=== PATIENT | female | born 1970 | race Native Hawaiian/Other Pacific Islander ===

== ENCOUNTER 2016-09-01 11:29 | Outpatient (CLI) | payer BC, OTHER ==
[~2016-09-01 11:29] MED LIST: ACID REDUCER150 MG PO; ALBU90AE13 INH; AMOX875T8 PO; BENZ100C8; BENZ100C8 PO; BENZONATATE200 MG PO; BUDE1AER5 INH; BUPROPN HCL300 MG PO; CHERATUSSIN OR; CLOBETASOL0.051; COUMADIN3 MG; DICL1GEL2 TOP; DICY20TA34 PO; DIPH2.5T76 PO; FLUT0.05; FLUTMIS14 INH; FLUTMIS6; FORTAMET500 MG PO; FURO20TA67 PO; FURO40TA93; FURO40TA93 PO; FURO80TA4 PO; FUROSEMIDE40 MG PO; GABA300C2 PO; GLIP5TAB65 PO; GRALISE600 MG PO; IMITREX100 MG PO; KEPPRA XR500 MG PO; KEPPRA750 MG PO; LEVAQUIN500 MG OR; LEVE500T5 PO; LEVO0.0529 PO; LISI10TA11; LISI10TA11 PO; MACROBID100 MG PO; METF500T; METOCLOPRAM10 MG PO; METRONIDAZOL500 MG OR; MICRO-K10 MEQ PO; NEUPRO1 MG/24 HR; NEUPRO1 MG/24 HR TD; NEUPRO3 MG/24 HR TOP; NEURONTIN800 MG PO; OMEPRAZOLE20 M1 PO; OMEPRAZOLE20 M2 PO; ONDA4TAB3 PO; POT CHLORIDE10 MEQ PO; POTASSI PO; PROTOPIC0.1 %; RANI150T78 PO; RANO500T PO; SALINE NASAL S0.651; SINGULAIR10 MG PO; SULFAZINE500 MG PO; THEOPHYLLINE S300 MG PO; TIZA4TAB5; TIZA4TAB5 PO; TRAZ100T; TUDORZA PR400 MG/ACT IN; UREA 40%; VIIBRYD40 MG PO; WARF5TAB6 PO; WARFARIN3 MG PO; WARFARIN6 MG PO; WELCHOL625 MG PO; ZOLP10TA2 PO
[2016-09-01 11:55] LABS: POTASSIUM 2.9 mmol/L (3.6-5.2); SODIUM 135 mmol/L (136-145)
== END 2016-09-01 19:23 | disposition home or self-care (01) ==
LOC: LABW 11:29
PROVIDERS: Physician Assistant
DX: D68.9 Coagulation defect, unspecified (principal); E87.6 Hypokalemia
CPT/HCPCS: 36415; 80048; 85610

== ENCOUNTER 2016-09-04 11:34 | Outpatient (CLI) | payer BC, OTHER ==
[~2016-09-04] VITALS: Ht 167.6 cm; Wt 127.9 kg
[2016-09-04 11:53] LABS: POTASSIUM 2.7 mmol/L (3.6-5.2); SODIUM 131 mmol/L (136-145)
== END 2016-09-04 21:28 | disposition home or self-care (01) ==
LOC: LABW 11:34 → INF 11:34 → LAB 11:34 → INF 21:28
PROVIDERS: Physician Assistant
DX: E87.6 Hypokalemia (principal); G25.81 Restless legs syndrome
CPT/HCPCS: 36416; 80048; 96365; 96366; J3480

== ENCOUNTER 2016-09-08 09:36 | Outpatient (CLI) | payer BC, OTHER ==
[2016-09-08 10:27] LABS: POTASSIUM 3.4 mmol/L (3.6-5.2); SODIUM 139 mmol/L (136-145)
== END 2016-09-08 22:08 | disposition home or self-care (01) ==
LOC: LABW 09:36
PROVIDERS: Physician Assistant
DX: E87.6 Hypokalemia (principal); D68.9 Coagulation defect, unspecified
CPT/HCPCS: 36415; 80048; 85610

== ENCOUNTER 2016-09-12 13:47 | Outpatient (CLI) | payer BC, OTHER ==
[2016-09-12 14:51] LABS: POTASSIUM 3.3 mmol/L (3.6-5.2); SODIUM 134 mmol/L (136-145)
[2016-09-12 15:03] LABS: PLATELET COUNT 323 K/uL (152-353)
[2016-09-12 15:08] LABS: PARTIAL THROMBOPLASTIN TIME 41.5 SECONDS (24.5-33.6)
== END 2016-09-12 20:51 | disposition home or self-care (01) ==
LOC: LABW 13:47
PROVIDERS: Physician Assistant
DX: D68.59 Other primary thrombophilia (principal); E87.6 Hypokalemia; R53.1 Weakness; Z51.81 Encounter for therapeutic drug level monitoring
CPT/HCPCS: 36415; 80053; 82607; 83735; 84439; 84443; 85027; 85610; 85730

== ENCOUNTER 2016-10-02 12:30 | Outpatient (CLI) | payer BC, OTHER ==
[2016-10-02 13:18] LABS: POTASSIUM 3.5 mmol/L (3.6-5.2); SODIUM 136 mmol/L (136-145)
== END 2016-10-02 19:09 | disposition home or self-care (01) ==
LOC: LABW 12:30
PROVIDERS: Physician Assistant
DX: E87.6 Hypokalemia (principal); D68.8 Other specified coagulation defects
CPT/HCPCS: 36415; 80048; 85610

== ENCOUNTER 2016-10-08 11:36 | Outpatient (CLI) | payer BC, OTHER | END 2016-10-08 12:36 | disposition home or self-care (01) | LOC: RAD 11:36 | DX: M54.40 Lumbago with sciatica, unspecified side (principal) ==

== ENCOUNTER 2016-10-29 11:00 | Outpatient (CLI) | payer BC, OTHER ==
[2016-10-29 12:18] LABS: POTASSIUM 3.3 mmol/L (3.6-5.2); SODIUM 136 mmol/L (136-145)
== END 2016-10-29 19:17 | disposition home or self-care (01) ==
LOC: LABW 11:00
PROVIDERS: Physician Assistant
DX: D68.9 Coagulation defect, unspecified (principal); E87.6 Hypokalemia
CPT/HCPCS: 36415; 80048; 85610

== ENCOUNTER 2016-11-19 10:19 | Outpatient (CLI) | payer BC, OTHER ==
[2016-11-19 12:21] LABS: POTASSIUM 3.5 mmol/L (3.6-5.2); SODIUM 137 mmol/L (136-145)
== END 2016-11-19 19:13 | disposition home or self-care (01) ==
LOC: LABW 10:19
PROVIDERS: Physician Assistant
DX: D68.8 Other specified coagulation defects (principal); E87.6 Hypokalemia
CPT/HCPCS: 36415; 80048; 85610

== ENCOUNTER 2016-12-04 12:40 | Outpatient (CLI) | payer BC, OTHER ==
[2016-12-04 13:45] LABS: POTASSIUM 3.4 mmol/L (3.6-5.2); SODIUM 137 mmol/L (136-145)
== END 2016-12-04 20:19 | disposition home or self-care (01) ==
LOC: LABW 12:40
PROVIDERS: Physician Assistant
DX: E87.6 Hypokalemia (principal); D68.8 Other specified coagulation defects
CPT/HCPCS: 36415; 80048; 85610

== ENCOUNTER 2017-01-12 12:27 | Observation (INO) | payer BC, OTHER ==
[~2017-01-12] VITALS: Ht 170.2 cm; Wt 127.1 kg
--- NOTE | 2017-01-12 13:29 | NUR ---
Pt. ADMITTED TO ROOM [address] PHAM. C/O LAST THURSDAY STARTED COUGHING, FEVER, ACHING ALLOVER AND WHEEZING. COUGHING A PRODUCTIVE COUGH OF WHITISH COLOR SPUTUM.
[2017-01-12 16:31] LABS: PLATELET COUNT 318 K/uL (152-353)
[2017-01-12 16:54] LABS: POTASSIUM 3.4 mmol/L (3.6-5.2); SODIUM 136 mmol/L (136-145)
--- NOTE | 2017-01-12 19:30 | NUR ---
Received pt resting in bed with family at bedside. No distress noted. Complains of headache and cough. Assessment completed. Bed in lowest position. Call light within reach. Will continue to monitor.
[2017-01-12 20:00] VITALS: BP 143/70; TEMP 97.8
[2017-01-12 20:07] VITALS: BP 132/87; TEMP 99.2; Ht 170.2 cm; Wt 127.1 kg
--- NOTE | 2017-01-12 23:49 | NUR ---
2320- Dr. Hoffmann notified of pt being anxious after breathing treatment. Order given at this time.
[2017-01-13] VITALS: BP 104/51; TEMP 98.8
[2017-01-13 04:00] VITALS: BP 106/61; TEMP 99
[2017-01-13 08:00] VITALS: BP 101/54; TEMP 98.6
[2017-01-13 09:17] LABS: PLATELET COUNT 283 K/uL (152-353)
[2017-01-13 09:41] LABS: SODIUM 139 mmol/L (136-145)
[2017-01-13 12:00] VITALS: BP 99/58; TEMP 97.6
--- NOTE | 2017-01-13 16:32 | NUR ---
IV D/C'd. NO REDNESS OR EDEMA OBSERVED. DISCHARGE INSTRUCTIONS SIGNED AND GIVEN. Pt. EXIT OUT OF FRONT ENTRANCE VIA W/C.
== END 2017-01-13 16:32 | disposition home or self-care (01) ==
LOC: MED/SURG 12:27
PROVIDERS: Internal Medicine; ADMIT Physician Assistant
DX: J44.1 Chronic obstructive pulmonary disease with (acute) exacerbation (principal); F17.210 Nicotine dependence, cigarettes, uncomplicated; R06.02 Shortness of breath
CPT/HCPCS: 36415; 80053; 82948; 83735; 84100; 85007; 85027; 85610; 87040; 87070; 87077; 87186; 87205; 93005; 94640; 94664; 94760; 99220; G0378; G0379; J3480

== ENCOUNTER 2017-02-06 11:21 | Outpatient (CLI) | payer BC, OTHER ==
[2017-02-06 12:30] LABS: SODIUM 137 mmol/L (136-145)
== END 2017-02-06 12:30 | disposition home or self-care (01) ==
LOC: LABW 11:21
PROVIDERS: Physician Assistant
DX: E87.6 Hypokalemia (principal); D68.8 Other specified coagulation defects
CPT/HCPCS: 36415; 80048; 85610

== ENCOUNTER 2017-02-26 13:59 | Outpatient (CLI) | payer BC, OTHER ==
[2017-02-26 14:59] LABS: SODIUM 138 mmol/L (136-145)
== END 2017-02-26 17:57 | disposition home or self-care (01) ==
LOC: LABW 13:59
PROVIDERS: Physician Assistant
DX: E87.6 Hypokalemia (principal); D68.8 Other specified coagulation defects
CPT/HCPCS: 36415; 80048; 85610

== ENCOUNTER 2017-04-16 16:32 | Outpatient (CLI) | payer BC, OTHER ==
[2017-04-16 17:28] LABS: POTASSIUM 3.4 mmol/L (3.6-5.2)
== END 2017-04-16 17:35 | disposition home or self-care (01) ==
LOC: LABW 16:32
DX: E87.6 Hypokalemia (principal); D68.8 Other specified coagulation defects
CPT/HCPCS: 36415; 80048; 85610

== ENCOUNTER 2017-04-25 10:37 | Outpatient (CLI) | payer BC, OTHER | END 2017-04-25 11:40 | disposition home or self-care (01) | LOC: LABW 10:37 | DX: Z86.010 Personal history of colon polyps (principal) | CPT/HCPCS: 82272 ==

== ENCOUNTER 2017-04-29 10:35 | Day surgery (SDC) | payer BC, OTHER ==
[2017-04-29 11:13] LABS: PLATELET COUNT 336 K/uL (152-353)
[2017-04-29 11:26] LABS: POTASSIUM 3.3 mmol/L (3.6-5.2); SODIUM 135 mmol/L (136-145)
[2017-04-29 11:41] LABS: PARTIAL THROMBOPLASTIN TIME 28.7 SECONDS (24.5-33.6)
== END 2017-04-29 16:05 | disposition home or self-care (01) ==
LOC: OR 10:35
PROVIDERS: Internal Medicine Gastroenterology
PROC: 0DB68ZZ Excision of Stomach, Via Natural or Artificial Opening Endoscopic (ICD-10-PCS; principal; 2017-04-29)
PROC: 0DB88ZZ Excision of Small Intestine, Via Natural or Artificial Opening Endoscopic (ICD-10-PCS; 2017-04-29)
PROC: 0D738ZZ Dilation of Lower Esophagus, Via Natural or Artificial Opening Endoscopic (ICD-10-PCS; 2017-04-29)
DX: K29.00 Acute gastritis without bleeding (principal); K31.7 Polyp of stomach and duodenum; K22.4 Dyskinesia of esophagus; K22.2 Esophageal obstruction; K21.0 Gastro-esophageal reflux disease with esophagitis; R13.19 Other dysphagia; R10.13 Epigastric pain; K25.9 Gastric ulcer, unspecified as acute or chronic, without hemorrhage or perforation
CPT/HCPCS: 36415; 80053; 85027; 85610; 85730; J2001; J2250; J2704; J3010; J3490

== ENCOUNTER 2017-05-08 17:32 | Outpatient (CLI) | payer BC, OTHER ==
[2017-05-08 19:11] LABS: POTASSIUM 3.7 mmol/L (3.6-5.2)
== END 2017-05-08 18:35 | disposition home or self-care (01) ==
LOC: LABW 17:32
PROVIDERS: Internal Medicine
DX: D68.8 Other specified coagulation defects (principal); E87.6 Hypokalemia
CPT/HCPCS: 36415; 80048; 85610

== ENCOUNTER 2017-05-27 10:19 | Outpatient (CLI) | payer BC, OTHER | END 2017-05-27 11:20 | disposition home or self-care (01) | LOC: MAMMO 10:19 | DX: Z12.31 Encounter for screening mammogram for malignant neoplasm of breast (principal) ==

== ENCOUNTER 2017-06-05 12:11 | Emergency (ER) | payer BC, OTHER ==
[~2017-06-05] VITALS: Ht 170.2 cm; Wt 122.9 kg
[2017-06-05 12:05] VITALS: TEMP 97.4
[2017-06-05 13:42] LABS: PLATELET COUNT 333 K/uL (152-353)
[2017-06-05 13:50] LABS: POTASSIUM 3.5 mmol/L (3.6-5.2); SODIUM 137 mmol/L (136-145)
[2017-06-05 14:02] LABS: PARTIAL THROMBOPLASTIN TIME 46.9 SECONDS (24.5-33.6)
[2017-06-05 17:00] VITALS: BP 105/55
== END 2017-06-05 17:05 | disposition home or self-care (01) ==
LOC: ED 12:11
PROVIDERS: Emergency Medicine
DX: J40 Bronchitis, not specified as acute or chronic (principal); J18.0 Bronchopneumonia, unspecified organism; M94.0 Chondrocostal junction syndrome [Tietze]
CPT/HCPCS: 80053; 82553; 84484; 85027; 85610; 85730; 93005; 96372; 99284; J1885; J2360

== ENCOUNTER 2017-07-03 12:17 | Outpatient (CLI) | payer BC, OTHER ==
[2017-07-03 12:39] LABS: POTASSIUM 3.5 mmol/L (3.6-5.2); SODIUM 138 mmol/L (136-145)
== END 2017-07-03 19:00 | disposition home or self-care (01) ==
LOC: LABW 12:17
PROVIDERS: Internal Medicine
DX: E87.6 Hypokalemia (principal); D68.8 Other specified coagulation defects
CPT/HCPCS: 36415; 80048; 85610

== ENCOUNTER 2017-07-20 14:55 | Outpatient (CLI) | payer BC, OTHER ==
[2017-07-20 15:23] LABS: POTASSIUM 3.5 mmol/L (3.6-5.2)
== END 2017-07-20 18:59 | disposition home or self-care (01) ==
LOC: LABW 14:55
PROVIDERS: Internal Medicine
DX: E87.6 Hypokalemia (principal); D68.8 Other specified coagulation defects
CPT/HCPCS: 36415; 80048; 85610

== ENCOUNTER 2017-09-03 07:43 | Outpatient (CLI) | payer BC, OTHER | END 2017-09-03 21:58 | disposition home or self-care (01) | LOC: NM 07:43 | DX: R07.89 Other chest pain (principal) | CPT/HCPCS: A9500; J2785 ==

== ENCOUNTER 2017-09-11 14:34 | Outpatient (CLI) | payer BC, OTHER ==
[2017-09-11 15:06] LABS: POTASSIUM 3.5 mmol/L (3.6-5.2)
== END 2017-09-11 19:34 | disposition home or self-care (01) ==
LOC: LABW 14:34
PROVIDERS: Internal Medicine
DX: E87.6 Hypokalemia (principal); D68.8 Other specified coagulation defects
CPT/HCPCS: 36415; 80048; 85610

== ENCOUNTER 2017-09-25 11:53 | Outpatient (CLI) | payer BC, OTHER ==
[2017-09-25 12:20] LABS: POTASSIUM 3.4 mmol/L (3.6-5.2)
== END 2017-09-25 19:24 | disposition home or self-care (01) ==
LOC: LABW 11:53
PROVIDERS: Physician Assistant
DX: R25.2 Cramp and spasm (principal); E87.6 Hypokalemia
CPT/HCPCS: 36415; 80048; 83735

== ENCOUNTER 2017-10-06 12:25 | Outpatient (CLI) | payer BC, OTHER ==
[2017-10-06 13:05] LABS: PLATELET COUNT 369 K/uL (152-353)
[2017-10-06 13:46] LABS: POTASSIUM 3.1 mmol/L (3.6-5.2)
== END 2017-10-06 19:08 | disposition home or self-care (01) ==
LOC: LABW 12:25
PROVIDERS: Internal Medicine
DX: E11.29 Type 2 diabetes mellitus with other diabetic kidney complication (principal)
CPT/HCPCS: 36415; 80053; 81000; 82043; 82306; 82570; 82728; 82746; 83540; 83550; 83735; 83970; 84100; 84155; 84439; 84443; 85027; 85651

== ENCOUNTER 2017-12-25 12:31 | Outpatient (CLI) | payer BC, OTHER ==
[2017-12-25 14:07] LABS: POTASSIUM 3.5 mmol/L (3.6-5.2)
== END 2017-12-25 22:15 | disposition home or self-care (01) ==
LOC: LABW 12:31
PROVIDERS: Internal Medicine
DX: E87.6 Hypokalemia (principal); D68.8 Other specified coagulation defects
CPT/HCPCS: 36415; 80048; 85610

== ENCOUNTER 2018-01-19 13:03 | Outpatient (CLI) | payer BC, OTHER ==
[2018-01-19 13:29] LABS: POTASSIUM 3.7 mmol/L (3.6-5.2)
== END 2018-01-19 19:50 | disposition home or self-care (01) ==
LOC: LABW 13:03
PROVIDERS: Physician Assistant
DX: E87.6 Hypokalemia (principal); D68.8 Other specified coagulation defects
CPT/HCPCS: 36415; 80048; 85610

== ENCOUNTER 2018-03-06 00:54 | Emergency (ER) | payer BC, OTHER ==
[~2018-03-06] VITALS: Ht 170.2 cm; Wt 125.2 kg
[2018-03-06 04:14] VITALS: BP 110/78; TEMP 98.6
== END 2018-03-06 04:17 | disposition home or self-care (01) ==
LOC: ED 00:54
DX: S93.691A Other sprain of right foot, initial encounter (principal); S93.491A Sprain of other ligament of right ankle, initial encounter; M79.671 Pain in right foot; M25.571 Pain in right ankle and joints of right foot; W01.0XXA Fall on same level from slipping, tripping and stumbling without subsequent striking against object, initial encounter; Y92.89 Other specified places as the place of occurrence of the external cause
CPT/HCPCS: 96372; 99283; J1885

== ENCOUNTER 2018-03-09 07:56 | Day surgery (SDC) | payer BC, OTHER ==
[2018-03-02 09:40] LABS: PLATELET COUNT 316 K/uL (152-353)
[2018-03-02 09:55] LABS: POTASSIUM 3.6 mmol/L (3.6-5.2)
[2018-03-09 08:48] LABS: PARTIAL THROMBOPLASTIN TIME 27.1 SECONDS (24.5-33.6)
== END 2018-03-09 12:00 | disposition home or self-care (01) ==
LOC: OR 07:56
PROVIDERS: Student in an Organized Health Care Education/Training Program
PROC: 0LB70ZZ Excision of Right Hand Tendon, Open Approach (ICD-10-PCS; principal; 2018-03-09)
DX: M67.441 Ganglion, right hand (principal)
CPT/HCPCS: 36415; 80053; 85027; 85610; 85730; J0132; J0690; J1100; J1170; J2001; J2250; J2405; J2704; J2765; J3010; J3490

== ENCOUNTER 2018-05-18 08:18 | Outpatient (CLI) | payer BC, OTHER | END 2018-05-18 23:22 | disposition home or self-care (01) | LOC: NM 08:18 | DX: S92.214D Nondisplaced fracture of cuboid bone of right foot, subsequent encounter for fracture with routine healing (principal); X58.XXXD Exposure to other specified factors, subsequent encounter | CPT/HCPCS: A9561 ==

== ENCOUNTER 2018-06-07 12:00 | Outpatient (CLI) | payer BC, OTHER | END 2018-06-07 19:22 | disposition home or self-care (01) | LOC: LABW 12:00 | DX: M79.632 Pain in left forearm (principal); D68.9 Coagulation defect, unspecified | CPT/HCPCS: 36415; 85610 ==

== ENCOUNTER 2018-06-28 13:13 | Outpatient (CLI) | payer BC, OTHER ==
[2018-06-28 14:06] LABS: POTASSIUM 3.6 mmol/L (3.6-5.2)
== END 2018-06-28 19:25 | disposition home or self-care (01) ==
LOC: LABW 13:13
PROVIDERS: Internal Medicine
DX: D68.9 Coagulation defect, unspecified (principal)
CPT/HCPCS: 36415; 80048; 85610

== ENCOUNTER 2018-08-04 11:03 | Day surgery (SDC) | payer BC, OTHER ==
[2018-08-04 12:31] LABS: PLATELET COUNT 350 K/uL (152-353)
[2018-08-04 13:04] LABS: PARTIAL THROMBOPLASTIN TIME 33.9 SECONDS (24.5-33.6)
== END 2018-08-04 14:45 | disposition home or self-care (01) ==
LOC: OR 11:03
PROVIDERS: Internal Medicine Gastroenterology
PROC: 0DBK8ZZ Excision of Ascending Colon, Via Natural or Artificial Opening Endoscopic (ICD-10-PCS; principal; 2018-08-04)
PROC: 0DBM8ZZ Excision of Descending Colon, Via Natural or Artificial Opening Endoscopic (ICD-10-PCS; 2018-08-04)
PROC: 0DBL8ZZ Excision of Transverse Colon, Via Natural or Artificial Opening Endoscopic (ICD-10-PCS; 2018-08-04)
DX: K63.5 Polyp of colon (principal); D12.4 Benign neoplasm of descending colon; D12.3 Benign neoplasm of transverse colon; K64.8 Other hemorrhoids; Z86.010 Personal history of colon polyps
CPT/HCPCS: 85027; 85610; 85730; J2001; J2250; J2704

== ENCOUNTER 2018-09-08 10:12 | Outpatient (CLI) | payer BC, OTHER ==
[2018-09-08 10:34] LABS: POTASSIUM 3.4 mmol/L (3.6-5.2)
== END 2018-09-08 19:27 | disposition home or self-care (01) ==
LOC: LABW 10:12
PROVIDERS: Internal Medicine
DX: D68.9 Coagulation defect, unspecified (principal); E87.6 Hypokalemia
CPT/HCPCS: 80048; 85610

== ENCOUNTER 2018-10-11 14:32 | Outpatient (CLI) | payer BC, OTHER | END 2018-10-11 20:04 | disposition home or self-care (01) | LOC: RAD 14:32 | DX: J40 Bronchitis, not specified as acute or chronic (principal) ==

== ENCOUNTER 2018-10-15 10:50 | Outpatient (CLI) | payer BC, OTHER ==
[2018-10-15 11:45] LABS: POTASSIUM 3.3 mmol/L (3.6-5.2)
== END 2018-10-15 19:42 | disposition home or self-care (01) ==
LOC: LABW 10:50
PROVIDERS: Internal Medicine
DX: D68.9 Coagulation defect, unspecified (principal); E87.6 Hypokalemia
CPT/HCPCS: 36415; 80048; 85610

== ENCOUNTER 2018-10-21 12:17 | Outpatient (CLI) | payer BC, OTHER ==
[2018-10-21 12:35] LABS: POTASSIUM 4.1 mmol/L (3.6-5.2)
== END 2018-10-21 21:52 | disposition home or self-care (01) ==
LOC: LABW 12:17
PROVIDERS: Internal Medicine
DX: D68.9 Coagulation defect, unspecified (principal)
CPT/HCPCS: 36415; 80048; 85610

== ENCOUNTER 2018-11-18 10:46 | Outpatient (CLI) | payer BC, OTHER ==
[2018-11-18 11:15] LABS: POTASSIUM 3.7 mmol/L (3.6-5.2)
== END 2018-11-18 20:41 | disposition home or self-care (01) ==
LOC: LABW 10:46
PROVIDERS: Internal Medicine
DX: D68.9 Coagulation defect, unspecified (principal); E87.6 Hypokalemia
CPT/HCPCS: 36415; 80048; 85610

== ENCOUNTER 2018-12-16 10:32 | Outpatient (CLI) | payer BC, OTHER | END 2018-12-16 21:02 | disposition home or self-care (01) | LOC: LABW 10:32 | DX: D68.9 Coagulation defect, unspecified (principal); E87.6 Hypokalemia | CPT/HCPCS: 36415; 85610 ==

== ENCOUNTER 2019-01-20 16:10 | Emergency (ER) | payer BC, OTHER ==
[~2019-01-20] VITALS: Ht 170.2 cm; Wt 104.3 kg
[2019-01-20] MEDS ORDERED: [UNRECOGNIZED DRUG - CODE] PO (16:45)
[2019-01-20 17:13] VITALS: BP 124/79; TEMP 97.5
== END 2019-01-20 17:15 | disposition home or self-care (01) ==
LOC: ED 16:10
DX: J03.90 Acute tonsillitis, unspecified (principal); F17.210 Nicotine dependence, cigarettes, uncomplicated
CPT/HCPCS: 96372; 99283; J1100

== ENCOUNTER 2019-01-24 10:19 | Outpatient (CLI) | payer BC, OTHER ==
[~2019-01-24 10:19] MED LIST changes: +[UNRECOGNIZED DRUG - CODE] PO
== END 2019-01-24 19:48 | disposition home or self-care (01) ==
LOC: LABW 10:19
DX: J02.8 Acute pharyngitis due to other specified organisms (principal)
CPT/HCPCS: 36415; 86648; 87077; 87081; 87185

== ENCOUNTER 2019-02-16 10:55 | Outpatient (CLI) | payer BC, OTHER ==
[2019-02-16 11:15] LABS: POTASSIUM 3.5 mmol/L (3.6-5.2)
== END 2019-02-16 23:28 | disposition home or self-care (01) ==
LOC: LABW 10:55
PROVIDERS: Internal Medicine
DX: D68.9 Coagulation defect, unspecified (principal); E87.6 Hypokalemia
CPT/HCPCS: 36415; 80048; 85610

== ENCOUNTER 2019-03-16 11:53 | Day surgery (SDC) | payer OTHER, BC ==
[2019-03-16 12:44] LABS: PLATELET COUNT 337 K/uL (152-353)
[2019-03-16 12:53] LABS: POTASSIUM 3.7 mmol/L (3.6-5.2)
[2019-03-16 13:05] LABS: PARTIAL THROMBOPLASTIN TIME 32.8 SECONDS (24.5-33.6)
== END 2019-03-16 14:45 | disposition home or self-care (01) ==
LOC: OR 11:53
PROVIDERS: Internal Medicine Gastroenterology
PROC: 0DBH8ZZ Excision of Cecum, Via Natural or Artificial Opening Endoscopic (ICD-10-PCS; principal; 2019-03-16)
PROC: 0DBK8ZZ Excision of Ascending Colon, Via Natural or Artificial Opening Endoscopic (ICD-10-PCS; 2019-03-16)
PROC: 0DBL8ZZ Excision of Transverse Colon, Via Natural or Artificial Opening Endoscopic (ICD-10-PCS; 2019-03-16)
DX: D12.2 Benign neoplasm of ascending colon (principal); D12.0 Benign neoplasm of cecum; D12.3 Benign neoplasm of transverse colon; K64.8 Other hemorrhoids; Z86.010 Personal history of colon polyps; Z79.01 Long term (current) use of anticoagulants
CPT/HCPCS: 80053; 85027; 85610; 85730; J2001; J2250; J2405; J2704

== ENCOUNTER 2019-04-07 10:58 | Outpatient (CLI) | payer OTHER, BC ==
[2019-04-07 11:13] LABS: PLATELET COUNT 339 K/uL (152-353)
[2019-04-07 11:32] LABS: POTASSIUM 3.3 mmol/L (3.6-5.2)
== END 2019-04-07 23:59 | disposition home or self-care (01) ==
LOC: LABW 10:58
PROVIDERS: Physician Assistant
DX: D68.8 Other specified coagulation defects (principal); E87.6 Hypokalemia; E03.8 Other specified hypothyroidism
CPT/HCPCS: 36415; 80048; 84439; 84443; 85027; 85610

== ENCOUNTER 2019-06-02 10:41 | Outpatient (CLI) | payer OTHER, BC ==
[2019-06-02 12:14] LABS: POTASSIUM 3.4 mmol/L (3.6-5.2)
[2019-06-02 12:22] LABS: PLATELET COUNT 344 K/uL (152-353)
== END 2019-06-02 20:25 | disposition home or self-care (01) ==
LOC: LABW 10:41
PROVIDERS: Physician Assistant
DX: R53.83 Other fatigue (principal); E83.42 Hypomagnesemia; E03.8 Other specified hypothyroidism; Z79.899 Other long term (current) drug therapy; Z79.01 Long term (current) use of anticoagulants
CPT/HCPCS: 36415; 80053; 80061; 83735; 84443; 85027; 85610

== ENCOUNTER 2019-08-04 11:51 | Outpatient (CLI) | payer OTHER, BC ==
[2019-08-04 12:42] LABS: POTASSIUM 3.7 mmol/L (3.6-5.2)
== END 2019-08-04 20:18 | disposition home or self-care (01) ==
LOC: LABW 11:51
PROVIDERS: Physician Assistant
DX: R05 Cough (principal); D68.8 Other specified coagulation defects; E87.6 Hypokalemia
CPT/HCPCS: 36415; 80048; 85610; 86615

== ENCOUNTER 2019-09-06 11:18 | Outpatient (CLI) | payer OTHER, BC | END 2019-09-06 19:43 | disposition home or self-care (01) | LOC: LABW 11:18 | DX: R19.7 Diarrhea, unspecified (principal) | CPT/HCPCS: 83630; 87015; 87045; 87328; 87329; 87899 ==

== ENCOUNTER 2019-09-26 21:23 | Emergency (ER) | payer OTHER, BC ==
[~2019-09-26] VITALS: Ht 170.2 cm; Wt 89.8 kg
[2019-09-26 22:22] VITALS: BP 128/83; TEMP 98.7
== END 2019-09-26 22:23 | disposition home or self-care (01) ==
LOC: ED 21:23
DX: K08.89 Other specified disorders of teeth and supporting structures (principal)
CPT/HCPCS: 99282

== ENCOUNTER 2019-11-03 15:10 | Outpatient (CLI) | payer OTHER, BC | END 2019-11-03 22:47 | disposition home or self-care (01) | LOC: LABW 15:10 | DX: E87.6 Hypokalemia (principal); D68.8 Other specified coagulation defects; E83.42 Hypomagnesemia | CPT/HCPCS: 36415; 84132; 85610 ==

== ENCOUNTER 2019-11-07 15:31 | Outpatient (CLI) | payer OTHER, BC | END 2019-11-07 23:10 | disposition home or self-care (01) | LOC: LAB 15:31 | DX: R19.7 Diarrhea, unspecified (principal) | CPT/HCPCS: 82272; 87015; 87045; 87077; 87185; 87186; 87324; 87328; 87329; 87449; 87507; 87899 ==

== ENCOUNTER 2020-02-02 10:45 | Outpatient (CLI) | payer OTHER, BC ==
[2020-02-02 11:14] LABS: PLATELET COUNT 299 K/uL (152-353)
[2020-02-02 11:33] LABS: POTASSIUM 3.7 mmol/L (3.6-5.2)
== END 2020-02-02 19:08 | disposition home or self-care (01) ==
LOC: LAB 10:45
PROVIDERS: Internal Medicine
DX: I10 Essential (primary) hypertension (principal); E03.8 Other specified hypothyroidism; D68.59 Other primary thrombophilia
CPT/HCPCS: 80053; 80061; 81000; 83735; 84439; 84443; 85027; 85610

== ENCOUNTER 2020-05-09 13:47 | Day surgery (SDC) | payer OTHER, BC ==
[2020-05-07 14:03] LABS: PLATELET COUNT 274 K/uL (152-353)
[2020-05-07 14:12] LABS: POTASSIUM 3.9 mmol/L (3.6-5.2)
[2020-05-07 14:17] LABS: PARTIAL THROMBOPLASTIN TIME 27.6 SECONDS (24.5-33.6)
[~2020-05-09] VITALS: Ht 165.1 cm; Wt 0.5 kg
== END 2020-05-09 16:15 | disposition home or self-care (01) ==
LOC: OR 13:47
PROVIDERS: Internal Medicine Gastroenterology
PROC: 0DBN8ZZ Excision of Sigmoid Colon, Via Natural or Artificial Opening Endoscopic (ICD-10-PCS; principal; 2020-05-09)
DX: K63.5 Polyp of colon (principal); D12.5 Benign neoplasm of sigmoid colon; K64.8 Other hemorrhoids; Z86.010 Personal history of colon polyps; Z12.11 Encounter for screening for malignant neoplasm of colon; Z79.01 Long term (current) use of anticoagulants
CPT/HCPCS: 80053; 85027; 85610; 85730; J2704

== ENCOUNTER 2020-05-14 11:41 | Outpatient (CLI) | payer OTHER, BC ==
[2020-05-14 12:26] LABS: POTASSIUM 3.7 mmol/L (3.6-5.2)
== END 2020-05-14 19:11 | disposition home or self-care (01) ==
LOC: LABW 11:41
PROVIDERS: Physician Assistant
DX: D68.8 Other specified coagulation defects (principal); E87.6 Hypokalemia; E83.42 Hypomagnesemia
CPT/HCPCS: 36415; 83735; 84132; 85610

== ENCOUNTER 2020-07-26 09:57 | Outpatient (CLI) | payer OTHER, BC | END 2020-07-26 19:00 | disposition home or self-care (01) | LOC: MAMMO 09:57 | PROVIDERS: ATTEND Internal Medicine | DX: Z12.31 Encounter for screening mammogram for malignant neoplasm of breast (principal); Z13.820 Encounter for screening for osteoporosis; N95.8 Other specified menopausal and perimenopausal disorders ==

== ENCOUNTER 2020-09-06 15:33 | Outpatient (CLI) | payer OTHER, BC | END 2020-09-06 21:43 | disposition home or self-care (01) | LOC: RAD 15:33 | PROVIDERS: ATTEND Internal Medicine | DX: M25.511 Pain in right shoulder (principal) ==

== ENCOUNTER 2020-10-03 10:37 | Day surgery (SDC) | payer OTHER, BC ==
[2020-09-27 08:44] LABS: PLATELET COUNT 278 K/uL (152-353)
[2020-09-27 09:07] LABS: POTASSIUM 3.3 mmol/L (3.6-5.2)
[~2020-10-03] VITALS: Ht 30.5 cm; Wt 0.5 kg
== END 2020-10-03 13:15 | disposition home or self-care (01) ==
LOC: OR 10:37
PROVIDERS: ATTEND Internal Medicine Gastroenterology
PROC: 0DB68ZZ Excision of Stomach, Via Natural or Artificial Opening Endoscopic (ICD-10-PCS; principal; 2020-10-03)
PROC: 0D738ZZ Dilation of Lower Esophagus, Via Natural or Artificial Opening Endoscopic (ICD-10-PCS; 2020-10-03)
DX: K29.50 Unspecified chronic gastritis without bleeding (principal); K21.00 Gastro-esophageal reflux disease with esophagitis, without bleeding; K22.4 Dyskinesia of esophagus; K22.2 Esophageal obstruction; R13.19 Other dysphagia; Z20.828 Contact with and (suspected) exposure to other viral communicable diseases
CPT/HCPCS: 80053; 85027; 87635; J2704; U0003

== ENCOUNTER 2021-01-21 18:29 | Outpatient (CLI) | payer OTHER, BC ==
[2021-01-21 18:49] LABS: PLATELET COUNT 272 K/uL (152-353)
[2021-01-21 19:27] LABS: POTASSIUM 3.8 mmol/L (3.6-5.2)
== END 2021-01-21 19:08 | disposition home or self-care (01) ==
LOC: LABW 18:29
PROVIDERS: ATTEND Physician Assistant
DX: D68.8 Other specified coagulation defects (principal); I10 Essential (primary) hypertension; E87.6 Hypokalemia; E03.8 Other specified hypothyroidism; E83.42 Hypomagnesemia; E11.9 Type 2 diabetes mellitus without complications
CPT/HCPCS: 36415; 80053; 80061; 82652; 83036; 83735; 84439; 84443; 85027

== ENCOUNTER 2021-03-21 15:00 | Outpatient (CLI) | payer OTHER, BC | END 2021-03-21 22:09 | disposition home or self-care (01) | LOC: MRI 15:00 | PROVIDERS: ATTEND Internal Medicine | DX: M47.816 Spondylosis without myelopathy or radiculopathy, lumbar region (principal) ==

== ENCOUNTER 2021-08-04 14:07 | Outpatient (CLI) | payer OTHER, BC | END 2021-08-04 18:51 | disposition home or self-care (01) | LOC: LABW 14:07 | PROVIDERS: ATTEND Internal Medicine | DX: D68.8 Other specified coagulation defects (principal) | CPT/HCPCS: 36415; 85610 ==

== ENCOUNTER 2022-04-07 10:25 | Outpatient (CLI) | payer OTHER, BC ==
[2022-04-07 11:23] LABS: PLATELET COUNT 275 K/uL (152-353)
[2022-04-07 11:44] LABS: POTASSIUM 3.3 mmol/L (3.6-5.2)
== END 2022-04-07 19:32 | disposition home or self-care (01) ==
LOC: LABW 10:25
PROVIDERS: ATTEND Internal Medicine
DX: E03.8 Other specified hypothyroidism (principal); Z51.81 Encounter for therapeutic drug level monitoring; Z79.899 Other long term (current) drug therapy
CPT/HCPCS: 36415; 80053; 80061; 80307; 81002; 84439; 84443; 85027

== ENCOUNTER 2022-08-31 10:16 | Emergency (ER) | payer OTHER, BC ==
[~2022-08-31] VITALS: Ht 170.2 cm; Wt 82.6 kg
[2022-08-31 10:25] VITALS: TEMP 98.4
[2022-08-31 12:21] VITALS: BP 127/71
== END 2022-08-31 12:21 | disposition home or self-care (01) ==
LOC: ED 10:16
DX: S90.31XA Contusion of right foot, initial encounter (principal); S90.221A Contusion of right lesser toe(s) with damage to nail, initial encounter; S92.514A Nondisplaced fracture of proximal phalanx of right lesser toe(s), initial encounter for closed fracture; W22.03XA Walked into furniture, initial encounter; Y92.89 Other specified places as the place of occurrence of the external cause
CPT/HCPCS: 99283

== ENCOUNTER 2023-02-06 09:00 | Outpatient (CLI) | payer BC, OTHER | END 2023-02-06 18:53 | disposition home or self-care (01) | LOC: RAD 09:00 | PROVIDERS: ATTEND Internal Medicine | DX: J42 Unspecified chronic bronchitis (principal) ==

== ENCOUNTER 2023-04-29 16:45 | Outpatient (CLI) | payer OTHER, BC | END 2023-04-29 18:54 | disposition home or self-care (01) | LOC: LABW 16:45 | PROVIDERS: ATTEND Internal Medicine | DX: D68.8 Other specified coagulation defects (principal) | CPT/HCPCS: 36415; 85610 ==

== ENCOUNTER 2023-05-05 09:45 | Outpatient (CLI) | payer OTHER, BC | END 2023-05-05 18:57 | disposition home or self-care (01) | LOC: RAD 09:45 → CT 09:45 → RAD 18:57 | PROVIDERS: ATTEND Internal Medicine | DX: K21.9 Gastro-esophageal reflux disease without esophagitis (principal); R07.89 Other chest pain | CPT/HCPCS: 36415; 82565; 84520; Q9963 ==

== ENCOUNTER 2023-06-14 11:01 | Outpatient (CLI) | payer BC, OTHER | END 2023-06-14 19:39 | disposition home or self-care (01) | LOC: LABW 11:01 | PROVIDERS: ATTEND Internal Medicine | DX: D68.8 Other specified coagulation defects (principal) | CPT/HCPCS: 36415; 85610 ==